=== PATIENT | female | born 1955 | race Two or more races ===

== ENCOUNTER 2020-02-01 15:41 | Outpatient (CLI) | payer OTHER ==
[~2020-02-01] VITALS: Ht 160 cm; Wt 63.5 kg
== END 2020-02-01 17:02 | disposition home or self-care (01) ==
LOC: OFIC 805 15:41
PROVIDERS: ATTEND Otolaryngology
DX: R49.0 Dysphonia (principal); R09.81 Nasal congestion; K21.0 Gastro-esophageal reflux disease with esophagitis; R05 Cough

== ENCOUNTER 2020-05-01 13:22 | Outpatient (CLI) | payer OTHER | END 2020-05-01 14:00 | disposition home or self-care (01) | LOC: OFIC 805 13:22 | PROVIDERS: ATTEND Otolaryngology | DX: R09.81 Nasal congestion (principal); R05 Cough; J38.02 Paralysis of vocal cords and larynx, bilateral ==

== ENCOUNTER 2023-11-03 08:30 | Outpatient (CLI) | payer OTHER | END 2023-11-03 08:35 | disposition home or self-care (01) | LOC: RX STUDY 08:30 | PROVIDERS: ATTEND Otolaryngology | DX: R10.13 Epigastric pain (principal) ==